=== PATIENT | male | born 1955 | race Hispanic/Latino ===

== ENCOUNTER 2017-04-19 00:28 | Emergency (ER) | payer MEDICAID, MEDICARE ==
[2017-04-19 00:29] VITALS: BMI 30.6
[2017-04-19 00:38] VITALS: BP 132/77; PULSE 77; RESP 16; TEMP 98.9; O2SAT 98
--- NOTE | 2017-04-19 03:01 | ED PDOC ---
HPI: Psych/Substance Abuse Time Seen by Provider: 04/19/17 02:11 Chief Complaint (Nursing): Psychiatric Evaluation Chief Complaint (Provider): depression Additional Complaint(s): 61yo M in ED for eval of frustration he felt with family and friends. no SI/HI/ intox/hallucinations. Past Medical History Reviewed: Historical Data, Nursing Documentation, Vital Signs Vital Signs: Last Vital Signs Temp 98.9 F 04/19/17 00:35 Pulse 77 04/19/17 00:35 Resp 16 04/19/17 00:35 BP 132/77 04/19/17 00:35 Pulse Ox 98 04/19/17 00:35 - Medical History PMH: Denies: Depression - Family History Family History: States: No Known Family Hx - Home Medications Home Medications: Ambulatory Orders Medication Instructions Recorded Acyclovir 400 mg PO 5XD #35 tab 01/11/13 Mineral Oil/Petrolatum [Lacri Lube] 1 oin OP HS PRN #1 oin 01/11/13 Prednisone 20 mg PO DAILY #23 tab 01/11/13 - Allergies Allergies/Adverse Reactions: Allergies Allergy/AdvReac Type Severity Reaction Status Date / Time No Known Allergies Allergy Verified 01/11/13 11:54 Review of Systems ROS Statement: Except As Marked, All Systems Reviewed And Found Negative Psych: Positive for: Anxiety. Negative for: Depression, Psychosis, Suicidal ideation, Withdrawal Physical Exam - Reviewed Nursing Documentation Reviewed: Yes Vital Signs Reviewed: Yes - Physical Exam Appears: Positive for: Well, Non-toxic, No Acute Distress Head Exam: Positive for: ATRAUMATIC, NORMAL INSPECTION, NORMOCEPHALIC Skin: Positive for: Normal Color, Warm, DRY Eye Exam: Positive for: EOMI, Normal appearance, PERRL Cardiovascular/Chest: Positive for: Regular Rate, Rhythm Respiratory: Positive for: CNT, Normal Breath Sounds Neurologic/Psych: Positive for: Alert, Oriented - ECG O2 Sat by Pulse Oximetry: 98 Medical Decision Making Medical Decision Making: pt cleared by crisis-for anxiety under MD wes Disposition - Clinical Impression Clinical Impression: Anxiety - Patient ED Disposition Is Patient to be Admitted: No Counseled Patient/Family Regarding: Need For Followup - Disposition Referrals: Stephon Sanchez MD [Primary Care Provider] - Disposition: Routine/Home Disposition Time: 03:00 Condition: STABLE Instructions: Anxiety (ED) Forms: [employer] ([employer])
== END 2017-04-19 06:18 | disposition home or self-care (01) ==
LOC: H.ER 00:28
DX: F41.9 Anxiety disorder, unspecified (principal); F32.9 Major depressive disorder, single episode, unspecified